=== PATIENT | male | born 1935 | race Caucasian/White ===

== ENCOUNTER 2017-04-07 16:09 | Observation (INO) | payer OTHER, BC ==
[~2017-04-07] VITALS: Ht 182.9 cm; Wt 79.4 kg
[~2017-04-07 16:09] MED LIST: ASPIR 8181 M1 PO; BACTRIM,SEPT1 TABLET PO; CADUET 5/401 TABLET PO; CEPHALEXIN500 MG PO; CYANOCOBAL1000 MCG/2 IM; DAILY VITAMIN1 EAC8 PO; GINKGO BILOBA120 MG PO; GINKGO BILOBA60 MG PO; GLUCOSAMINE &1 EAC1 PO; GLUCOSAMINE CH1 EAC2 PO; LO-DOSE ASPIRIN81 M1 PO; LOVAZA1 GM PO; METAMUCIL POWD822 G1 PO; NAMENDA5 MG PO; NAPROSYN500 MG PO; NEXIUM40 MG PO; ONE DAILY FOR1 EACH PO; ROCALTROL0.25 MCG PO; TURMERIC PO; ULTRAM50 MG PO; VITAMIN C1000 M1 PO; VITAMIN C1000 MG PO; ZANTAC300 MG PO; [UNRECOGNIZED DRUG - OTHER] PO
[2017-04-07 17:42] LABS: HEMATOCRIT 38.2 % (38.0-50.0); MCH 30.6 PG (29.0-34.0); MCHC 33.8 G/DL (30.0-36.0); MCV 90.7 FL (86-99); MEAN PLAT.VOLUME 9.7 uM^3 (9.0-12.4); PLATELET COUNT 226 K/uL (156-360); RBC DIS.WIDTH-CV 12.2 % (11.8-14.6); RBC DIS.WIDTH-SD 40.4 % (39-53); RED BLOOD COUNT 4.21 M/uL (4.00-5.50)
[2017-04-07 17:50] LABS: CHLORIDE 111 mEq/L (99-109); POTASSIUM 4.4 mEq/L (3.7-5.4); SODIUM 144 mEq/L (136-147)
[2017-04-07 17:52] LABS: GLUCOSE 101 mg/dL (70-99)
[2017-04-07 17:53] LABS: ANION GAP 11 MEQ/L (2-14)
[2017-04-07 17:56] LABS: GFR ESTIMATE (CALCULATED) 22 mL/min/
[2017-04-07 17:57] LABS: UREA NITROGEN (BUN) 46 mg/dL (9-23)
[2017-04-07 18:56] LABS: TROP-I INTERPRETATION NEGATIVE; TROPONIN-I 0.03 ng/mL (0.0-0.30)
[2017-04-07 19:55] LABS: ADD MIUA? NO; BILIRUBIN NEGATIVE; BLOOD NEGATIVE; COLOR YELLOW ((YELLOW)); GLUCOSE (STRIP) NEGATIVE; KETONES NEGATIVE; LEUKOCYTES NEGATIVE; NITRITE NEGATIVE; PROTEIN (STRIP) 30; SPECIFIC GRAVITY 1.014 (1.000-1.030); UROBILINOGEN 0.2 MG/DL (0.2-1.0)
[2017-04-07 21:06] LABS: Estimated Average Glucose 123 mg/dL (70-123); HEMOGLOBIN A1c (GLYCOHEMOGLOB) 5.9 % HGB (Below 5.7)
[2017-04-07 21:51] LABS: HDL CHOLESTEROL 35 MG/DL (Desirable>=40); LDL CHOLESTEROL 44 mg/dL (Desirable<100); NON-HDL CHOLESTEROL 63 mg/dL (Desirable<160); SAMPLE HEMOLYSIS CHECK 0; SAMPLE ICTERIC CHECK 0; SAMPLE LIPEMIA CHECK 0; TOTAL CHOLESTEROL 98 mg/dL (Desirable<200); TRIGLYCERIDES 93 MG/DL (Normal: <150)
[2017-04-08 01:27] LABS: TROP-I INTERPRETATION NEGATIVE; TROPONIN-I 0.03 ng/mL (0.0-0.30)
[2017-04-08 02:01] VITALS: BP 164/96
[2017-04-08 08:50] LABS: HEMATOCRIT 38.8 % (38.0-50.0); MCH 30.6 PG (29.0-34.0); MCHC 33.8 G/DL (30.0-36.0); MCV 90.7 FL (86-99); PLATELET COUNT 228 K/uL (156-360); RBC DIS.WIDTH-CV 12.1 % (11.8-14.6); RBC DIS.WIDTH-SD 40.2 % (39-53); RED BLOOD COUNT 4.28 M/uL (4.00-5.50); WHITE BLOOD COUNT 4.2 K/uL (4.1-10.2)
[2017-04-08 09:16] LABS: ALKALINE PHOSPHATASE 52 IU/L (3-129); ANION GAP 10 MEQ/L (2-14); CHLORIDE 110 MEQ/L (99-109); GFR ESTIMATE (CALCULATED) 24 mL/min/; GLUCOSE 112 mg/dL (70-99); POTASSIUM 4.9 MEQ/L (3.7-5.4); SAMPLE HEMOLYSIS CHECK 0; SAMPLE ICTERIC CHECK 0; SAMPLE LIPEMIA CHECK 0; SODIUM 146 MEQ/L (136-147); TOTAL BILIRUBIN 0.5 MG/DL (0.0-1.0); UREA NITROGEN (BUN) 43 mg/dL (9-23)
[2017-04-08 09:19] VITALS: BP 142/86
[2017-04-08 09:27] LABS: TROP-I INTERPRETATION NEGATIVE; TROPONIN-I 0.04 ng/mL (0.0-0.30)
[2017-04-08] MEDS ORDERED: ESOMEPRAZOLE MA40 MG PO (12:12)
[2017-04-08 12:35] VITALS: BP 156/86
[2017-04-08 16:00] VITALS: BP 148/93
== END 2017-04-08 18:45 | disposition home or self-care (01) ==
LOC: EME 16:09 → EDOF 19:28 → 5WEST 19:28 → ENRESERV 19:30 → 5WEST 04-08 01:33
PROVIDERS: Internal Medicine; Nurse Practitioner Family
DX: G45.9 Transient cerebral ischemic attack, unspecified (principal); Z86.73 Personal history of transient ischemic attack (TIA), and cerebral infarction without residual deficits; I12.9 Hypertensive chronic kidney disease with stage 1 through stage 4 chronic kidney disease, or unspecified chronic kidney disease; N18.4 Chronic kidney disease, stage 4 (severe); F03.90 Unspecified dementia, unspecified severity, without behavioral disturbance, psychotic disturbance, mood disturbance, and anxiety; E78.5 Hyperlipidemia, unspecified; I25.10 Atherosclerotic heart disease of native coronary artery without angina pectoris; Z87.891 Personal history of nicotine dependence; I25.2 Old myocardial infarction; Z79.82 Long term (current) use of aspirin
CPT/HCPCS: 70450; 70551; 80048; 80053; 80061; 81003; 83036; 84484; 85027; 93005; 93880; 99281; 99285; G0378; J1644